=== PATIENT | female | born 1995 | race Hispanic/Latino ===

== ENCOUNTER 2018-04-15 19:07 | Emergency (ER) | payer OTHER ==
--- NOTE | 2018-04-15 20:07 | RAD ---
RIGHT KNEE FOUR VIEWS: HISTORY: Fall. Right knee injury. FINDINGS: The joint spaces are preserved. No acute fracture, dislocation, or fluid distention of the suprapate llar bursa is apparent. IMPRESSION: No acute osseous abnormalities are demonstrated. POS: [facility]
== END 2018-04-15 19:50 | disposition home or self-care (01) ==
LOC: SCSER 19:07
DX: S80.01XA Contusion of right knee, initial encounter (principal); W01.0XXA Fall on same level from slipping, tripping and stumbling without subsequent striking against object, initial encounter